=== PATIENT | female | born 1975 | race Caucasian/White ===

== ENCOUNTER 2017-08-09 15:32 | Inpatient (IN) | payer SELFPAY ==
[~2017-08-09] VITALS: Ht 162.6 cm; Wt 91.0 kg
--- NOTE | ~2017-08-09 | HP ---
ADMIT: 08/09/2017 RM/LOC: 502 [facility] MR#: [id number] 2620 [facility] [address] [place], [place] [address] [address] [place] [address] History and Physical SEX: F AGE: 41 : 1975 DATE OF SERVICE: 08/10/2017 CHIEF COMPLAINT: Shakes, depression, alcohol withdrawal, coffee-grounds emesis, and melena. HISTORY OF PRESENT ILLNESS: Nellie is a 41-year-old, white female, who presented to the [facility] Emergency Room with 2 weeks of weakness, but also reporting that she has been drinking heavily in upwards of 10 to 12 shots of liquor per day mixed with Dr Jones. She states she has been drinking this heavily because of her chronic shoulder pain which she does not feel is controlled. She has seen Dr. Chen for her shoulder pain as well as Dr. Nany Lundberg for chronic pain management and is on chronic narcotic therapy for her shoulder pain. She also has a history of depression and is on Zoloft for this. She is reporting some suicidal ideation, but no active plan to harm herself. She reports that in the past she has had problems with alcohol requiring ADTC treatment but has been essentially sober for the last several years, up in the last couple weeks. She reports in the last 4 days she has had some left-sided epigastric abdominal discomfort, several episodes of vomiting and vomiting up "black stuff." She has also had some black tarry looking stools as well in the last few days. She denies any chest pain, cough, shortness of breath, fevers. She reports that when she goes to sleep she wakes up shaky and has to drink to keep the shakes away. PAST MEDICAL HISTORY: Remarkable for; 1. History of alcohol dependence, previously in remission, now active. 2. Major depression, poorly controlled. 3. Obesity. 4. History of gastritis. 5. Gastroesophageal reflux disease. 6. History of right cervical radiculopathy. 7. History of right shoulder pain. 8. History of acute pancreatitis. PAST SURGICAL HISTORY: 1. Hysterectomy in 2001. 2. Gallbladder removal in 2001. 3. Appendectomy in 1992. 4. Gastric bypass in 2010. 5. Right total knee replacement in 2007. 6. Right foot surgeries x2. 7. Carpal tunnel and tennis elbow surgeries on the right arm in 2014. MEDICATIONS: Her outpatient medications include; 1. Omeprazole 20 mg daily which she has not been taking. 2. Sertraline 100 mg daily. 3. morphine ER 15 mg t.i.d. ALLERGIES: SHE IS ALLERGIC TO; 1. PENICILLIN, WHICH CAUSES HIVES. ADMIT: 08/09/2017 RM/LOC: 502 [facility] MR#: [id number] [address] [address] [place] [address] History and Physical SEX: F AGE: 41 : 1975 2. GENTAMICIN, WHICH CAUSES A RASH. 3. ERYTHROMYCIN, WHICH CAUSES ITCHING AND RASH. SOCIAL HISTORY: She is a smoker about half pack per day. Again, she reports that she has been drinking in upwards of 10 to 12 shots of liquor per day in the last couple weeks. She denies any recreational drug use. She is and her is with her in the hospital room today. 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 FAMILY HISTORY: Diabetes in grandfather and grandmother. Heart disease in grandmother and grandfather. REVIEW OF SYSTEMS: As per HPI. All others were reviewed and were negative. PHYSICAL EXAMINATION: VITAL SIGNS: Blood pressure is 146/76, pulse 79, respirations 16, temperature is 99.4, O2 saturation is 97% on room air. GENERAL: She is awake, alert, sad, and tearful in the hospital room, but no acute distress. HEENT: Normocephalic and atraumatic. NECK: Supple. No lymphadenopathy. No thyromegaly. HEART: Regular rate and rhythm. No murmurs, gallops, or rubs. LUNGS: Clear to auscultation bilaterally. ABDOMEN: Obese, soft, nondistended. She has some mild discomfort in the epigastrium and left upper quadrant. EXTREMITIES: No cyanosis, clubbing, or edema. LABORATORY AND X-RAY DATA: Urine preg test was negative. UA with micro was negative. INR was negative. Initial sodium was 122, and this was corrected up to 132 in the overnight period. She was also mildly hypokalemic, this also has improved in the overnight period from 3.3 to 3.9. Her lipase on admission was elevated at 440. In the overnight period, it is actually increased to 826 despite being n.p.o. Urine drugs of abuse screen was positive for opioids. CBC shows a microcytic anemia with a hemoglobin of 11.3, and platelet count of 305. Chest x-ray is unremarkable. ASSESSMENT AND PLAN: 1. Alcohol abuse and dependence. 2. Depression, poorly controlled. 3. Chronic shoulder pain. 4. Coffee-grounds emesis, and melena. 5. Microcytic anemia. 6. Acute alcoholic pancreatitis. 7. Hyponatremia. 8. Alcoholic gastritis. PLAN: Nellie has been n.p.o. since admission. We will keep her n.p.o. given her lipase still in the 800 range. I am going to start her on IV Protonix for what I suspect is alcohol-induced gastritis, and we will ask General Surgery ADMIT: 08/09/2017 RM/LOC: 502 [facility] MR#: [id number] [facility] [address] [address] [address] [place] [address] History and Physical SEX: F AGE: 41 : 1975 to consult for that. I am also going to ask that Dr. Chen just briefly visit with the patient to see if there is anything or if he has any other recommendations on her shoulder pain, and we will ask her Pain Management physician Dr. Lundberg to consult as well. With her depression, I am going to ask the Telepsychiatry make some recommendations. I do wonder if potentially Nellie has some undiagnosed bipolar disorder. She has numerous tattoos, history of rather impulsive behavior, and alcohol use, and has been marginally managed with the Zoloft at this point. We will also ask [facility] to consult and offer Nellie some help with her alcohol use. We will be watching her very closely in the next 2-3 days for alcohol withdrawal. Her last alcoholic beverage was about 3:30 in the afternoon on the . She has been started on the alcohol withdrawal protocol as well as on thiamine and folic acid. Further management will be dependent on Nellie's clinical course. Kit Kuo MD/ jarrell JOB #: [id number] CC: Kit Kuo, Attending Physician Kit Kuo, Family Physician
--- NOTE | ~2017-08-09 | CO ---
ADMIT: 08/09/2017 RM/LOC: 502 [facility] MR#: [id number] 2620 [facility] [address] [place], [place] [address] [address] [place] [address] Consultation SEX: F AGE: 41 : 1975 Corrected: 08/13/2017 0658 njv DATE OF CONSULTATION: 08/10/2017 ATTENDING PHYSICIAN: Kit Kuo CONSULTING PHYSICIAN: Joshua Perkisn MD HISTORY OF PRESENT ILLNESS: The patient is a 41-year-old female, who has been having some issues with chronic pain, has been drinking heavily at home presented to the emergency room with depression, some emesis, some suicidal ideation. Emesis that was coffee ground and I was consulted for possible gastritis, ulcer examination or followup. She has been started appropriately on a proton pump inhibitor. PAST MEDICAL HISTORY: Includes history of alcohol dependence, depression, obesity, reflux disease, some shoulder and neck pain, history of pancreatitis. PAST SURGICAL HISTORY: Includes cholecystectomy, hysterectomy, appendectomy, she has had gastric bypass, right total knee replacement, foot surgeries, carpal tunnel, tennis elbow surgery. MEDICATIONS: Include: 1. Omeprazole. 2. Sertraline. 3. Morphine. ALLERGIES: TO PENICILLIN, GENTAMICIN, ERYTHROMYCIN. SOCIAL HISTORY: She smokes about a half-pack cigarettes a day. Drinks alcohol heavily. FAMILY HISTORY: Diabetes and heart disease. REVIEW OF SYSTEMS: 10-point review of systems negative other than her anxiety, depression, and her emesis. When I saw her, she was talking on the phone. No real acute distress. PHYSICAL EXAMINATION: HEENT: Head is normocephalic and atraumatic. She had no scleral icterus. VITAL SIGNS: Stable. HEART: Regular. LUNGS: Clear. ABDOMEN: Soft, nondistended, and nontender. ADMIT: 08/09/2017 RM/LOC: 502 [facility] MR#: [id number] [address] [place] [address] [place], [place] [address] [address] [place] [address] Consultation SEX: F AGE: 41 : 1975 EXTREMITIES: No peripheral edema. NEUROLOGICAL: No focal neurologic deficits. ASSESSMENT AND PLAN: The patient is a 41-year-old with alcoholism, withdrawal issues, had some vomiting but has a normal hemoglobin, not describing any abdominal pain at this point in time. Agree with the proton pump inhibitor and working with her alcohol dependency needs. At this point in time, we would not recommend any endoscopic workup. She seems hemodynamically normal with normal lab work. Joshua Perkins MD/ jarrell JOB #: [id number] CC: Kit Kuo, Attending Physician Kit Kuo, Family Physician Corrected: 08/13/2017 0658 njsusie
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
--- NOTE | 2017-08-10 13:28 | ER ---
ADMIT: 08/09/2017 RM/LOC: 502 [facility] MR#: [id number] [address] [place] [phone] JUAN DANIEL MCFARLAN[address] Guadalupe Greer [address] [place] [address] Emergency Room Report SEX: F AGE: 41 : 1975 DATE: 08/09/2017 This is a 41-year-old female who presents to emergency room with 2 weeks of weakness. She says she has continually been drinking for the last 2 weeks. She is pretty depressed. She states that she is positive for depression and takes sertraline for that. She says she has been drinking for the last 2 weeks, whiskey and Dr. Jones. She is very sad because of the pain she has got in her shoulder that was just operated by Dr. Chen. She also sees a pain doctor. REVIEW OF SYSTEMS: Positive for depression. PAST MEDICAL HISTORY: Right knee surgery as well as shoulder surgery and depression. MEDICATIONS: 1. Sertraline. 2. Morphine. SOCIAL HISTORY: She smokes half a pack a day and drinks regularly. For the last 2 weeks, it has been very heavy. PHYSICAL EXAMINATION: VITAL SIGNS: Blood pressure 179/100, with a heart rate of 82, respirations 16, temp is 97.8, and O2 sats 98%. GENERAL: Mildly anxious. HEENT: She has erythema and swelling on her face. NECK: Supple. RESPIRATIONS: No distress. CARDIOVASCULAR: Regular in rate and rhythm. ABDOMEN: Right upper quadrant tenderness. EXTREMITIES: Well perfused. NEUROLOGICAL: She is depressed and tearful. Family at bedside, son and . ADMIT: 08/09/2017 RM/LOC: 502 [facility] MR#: [id number] [address] [place] [phone] [address] [place] [address] Emergency Room Report SEX: F AGE: 41 : 1975 LABORATORY DATA: CBC within normal limits with a hemoglobin of 36.0 and a platelet of 251. Anion gap is 22. UDS positive for opioids. Chemistry positive for sodium of 122, potassium 3.3, CO2 of 16, BUN 5, glucose of 63, AST 56. Ethanol level 219. Lipase 440. HCG negative. UA ketones 1+ and rbc's 2. CLINICAL IMPRESSION: Electrolyte imbalance, dehydration, pancreatitis, hyponatremia, and alcohol intoxication. Dr. Sow on-call for Dr. Kuo. She is admitted to the hospital for alcohol withdrawal protocol. The patient notified of admission, awaiting room placement. She was given a liter of normal saline with Zofran. KORIN Thapa / Kendall España MD / modl JOB #: [id number] CC: Kit Kuo MD, Attending Physician Kit Kuo MD, Family Physician
[2017-08-12] MEDS ORDERED: MS CONTIN DPS15 MG PO (14:48)
[2017-08-12] MEDS ORDERED: CARAFATE DPS1 GM PO (14:48)
[2017-08-12] MEDS ORDERED: PRILOSEC DPS20 MG PO (14:48)
[2017-08-12] MEDS ORDERED: SERTRALINE HCL100 MG PO (14:48)
== END 2017-08-12 13:20 | disposition home or self-care (01) | DRG 391 ==
LOC: ER 15:32 → 5MS 17:26
PROVIDERS: ADMIT Family Medicine
PROC: HZ2ZZZZ Detoxification Services for Substance Abuse Treatment (ICD-10-PCS; principal; 2017-08-09)
DX: K29.20 Alcoholic gastritis without bleeding (principal); K85.20 Alcohol induced acute pancreatitis without necrosis or infection; E87.1 Hypo-osmolality and hyponatremia; F10.229 Alcohol dependence with intoxication, unspecified; D50.9 Iron deficiency anemia, unspecified; F32.9 Major depressive disorder, single episode, unspecified; E66.9 Obesity, unspecified; M25.511 Pain in right shoulder; G89.29 Other chronic pain; K21.9 Gastro-esophageal reflux disease without esophagitis; F17.210 Nicotine dependence, cigarettes, uncomplicated; E86.0 Dehydration; Z96.651 Presence of right artificial knee joint; Z98.84 Bariatric surgery status; Y90.7 Blood alcohol level of 200-239 mg/100 ml; Z68.32 Body mass index [BMI] 32.0-32.9, adult